=== PATIENT | female | born 2000 | race Caucasian/White ===

== ENCOUNTER 2021-11-24 11:10 | Emergency (ER) | payer OTHER ==
[2021-11-24 12:14] LABS: Bilirubin Neg (Negative); Blood, Urine Negative (Negative); Clarity Slightly Cloudy (Clear); Glucose, Urine (Dipstick) Normal (Negative); Ketone, Urine Negative (Negative); Leukocyte 500 (Negative); Nitrite Negative (Negative); Protein, Urine (Dipstick) Negative (Neg-Trace); Specific Gravity, Urine 1.015 (1.002-1.036); Urobilinogen Normal mg/dL (Less than 2)
[2021-11-24 12:18] LABS: #Basophils 0.1 10x3/uL (0.0-0.2); #Eosinphils 0.1 10x3/uL (0.0-0.5); #Monocytes 1.1 10x3/uL (0.0-1.1); #Neutrophils 11.4 10x3/uL (1.5-8.4); %Basophils 0.4 % (0.0-2.0); %Eosinophils 0.8 % (0.0-6.0); %Lymphocytes 13.5 % (18.0-47.0); %Monocytes 7.4 % (0.0-10.0); %Neutrophils 77.1 % (40.0-75.0); Hemoglobin 11.2 g/dL (12.0-15.5); Mean Corpuscular HGB CONC 33.4 g/dL (32.0-36.0); Mean Corpuscular Hemoglobin 28.7 pg (27.0-33.0); Mean Corpuscular Volume 85.9 fl (81.6-98.3); Mean Platelet Volume 10.1 fl (7.4-10.4); Platelet Count 335 10x3/uL (150-450); RBC Distribution Width 12.8 % (11.5-14.5); White Blood Cell (WBC) Count 14.7 10x3/uL (3.5-10.5)
[2021-11-24 12:27] LABS: ALT (SGPT) 39 U/L (8-55); AST (SGOT) 27 U/L (5-34); Albumin 3.7 g/dL (3.5-5.0); Alkaline Phosphatase 68 U/L (40-100); Anion Gap 11 mmol/L (10-20); BUN (Urea Nitrogen) 10 mg/dL (7.0-18.7); Bilirubin, Total 0.4 mg/dL (0.2-1.2); Calc. Creatinine Clearance 0 mL/min (70-130); Calcium 9.3 mg/dL (7.8-10.44); Carbon Dioxide 23 mmol/L (22-29); Chloride 106 mmol/L (98-107); Estimated GFR 128; Globulin 3.1 g/dL (2.4-3.5); Glucose 70 mg/dL (70-105); Potassium 3.9 mmol/L (3.5-5.1); Protein, Total 6.8 g/dL (6.0-8.3); Sodium 136 mmol/L (136-145)
[2021-11-24 12:30] LABS: RBC/HPF 0-3 HPF (0-3)
[2021-11-24 12:31] LABS: Bacteria/HPF 3+ HPF (None Seen)
== END 2021-11-24 14:10 | disposition home or self-care (01) ==
LOC: CSHERS 11:10
DX: O23.42 Unspecified infection of urinary tract in pregnancy, second trimester (principal); N39.0 Urinary tract infection, site not specified; Z3A.19 19 weeks gestation of pregnancy
CPT/HCPCS: 36415; 80053; 81003; 81015; 85025; 86900; 86901; 87480; 87510; 87660; 99284

== ENCOUNTER 2021-12-30 08:51 | Emergency (ER) | payer OTHER ==
[2021-12-30] MEDS ORDERED: Ondansetron PF 4 MG/2 ML Vial ONE (10:31)
[2021-12-30 10:38] LABS: Hemoglobin 10.5 g/dL (12.0-15.5); Mean Corpuscular HGB CONC 32.7 g/dL (32.0-36.0); Mean Corpuscular Hemoglobin 28.4 pg (27.0-33.0); Mean Corpuscular Volume 86.8 fl (81.6-98.3); Platelet Count 349 10x3/uL (150-450); RBC Distribution Width 12.2 % (11.5-14.5); White Blood Cell (WBC) Count 21.8 10x3/uL (3.5-10.5)
[2021-12-30 10:39] LABS: MDiff Complete? YES
[2021-12-30 10:51] LABS: ALT (SGPT) 16 U/L (8-55); AST (SGOT) 20 U/L (5-34); Albumin 3.8 g/dL (3.5-5.0); Alkaline Phosphatase 89 U/L (40-110); Anion Gap 13 mmol/L (10-20); BUN (Urea Nitrogen) 7 mg/dL (7.0-18.7); Bilirubin, Total 0.4 mg/dL (0.2-1.2); Calc. Creatinine Clearance 0 mL/min (70-130); Carbon Dioxide 21 mmol/L (22-29); Chloride 106 mmol/L (98-107); Estimated GFR 129; Globulin 3.6 g/dL (2.4-3.5); Glucose 78 mg/dL (70-105); Potassium 3.7 mmol/L (3.5-5.1); Protein, Total 7.4 g/dL (6.0-8.3); Sodium 136 mmol/L (136-145)
[2021-12-30 10:59] LABS: Band 5 % (5-11); Eosinophils 1 % (0-10); Lymphocytes 8 % (21-51); Metamyelocyte 1 % (0-0); Monocytes 1 % (0-10); Myelocyte 1 % (0-0); Neutrophil 83 % (42-75)
[2021-12-30 11:01] LABS: Platelet Morphology Comment Appears Adequate; RBC Morphology Normal
[2021-12-30 11:50] LABS: Bilirubin Neg (Negative); Blood, Urine Negative (Negative); Glucose, Urine (Dipstick) Normal (Negative); Ketone, Urine 5 mg/dL (Negative); Leukocyte 100 (Negative); Nitrite Negative (Negative); Protein, Urine (Dipstick) 30 mg/dl (Neg-Trace); Specific Gravity, Urine 1.015 (1.005-1.030); Urobilinogen Normal mg/dL (Less than 2); pH, Urine 6.5 (5.0-9.0)
[2021-12-30 11:52] LABS: Clarity Slightly Cloudy (Clear)
[2021-12-30 12:04] LABS: Bacteria/HPF 2+ HPF (None Seen); RBC/HPF 0-3 HPF (0-3)
[2021-12-30] MEDS ORDERED: cefTRIAXone\\ROCEPHIN 2 GM VIAL ONE (12:54)
== END 2021-12-30 13:21 | disposition home or self-care (01) ==
LOC: CSHERS 08:51
DX: O23.12 Infections of bladder in pregnancy, second trimester (principal); N30.00 Acute cystitis without hematuria; Z3A.25 25 weeks gestation of pregnancy
CPT/HCPCS: 80053; 81003; 81015; 85025; 87804; 96361; 96365; 96375; J0696; J2405

== ENCOUNTER 2022-03-08 21:38 | Day surgery (SDC) | payer OTHER ==
[2022-03-08 22:46] VITALS: BMI 28.3
[2022-03-08] MEDS ORDERED: hydrALAZINE 20 MG/ML VIAL SLOW IVP PRN (22:55)
[2022-03-08] MEDS ORDERED: Butorphanol Tartrate 1 MG/ML VIAL SLOW IVP PRN (22:56)
[2022-03-08] MEDS ORDERED: Lactated Ringer's 1,000 ML IV SCH (23:00)
[2022-03-08 23:37] LABS: Hemoglobin 10.2 g/dL (12.0-15.5); Mean Corpuscular Hemoglobin 24.8 pg (27.0-33.0); Mean Corpuscular Volume 77.4 fl (81.6-98.3); Mean Platelet Volume 11.1 fl (7.4-10.4); Platelet Count 408 10x3/uL (150-450); RBC Distribution Width 14.3 % (11.5-14.5); Red Blood Cell (RBC) Count 4.12 10x6/uL (3.90-5.03); White Blood Cell (WBC) Count 17.4 10x3/uL (3.5-10.5)
[2022-03-09 00:18] LABS: HBSAg Index 0.17 S/CO (0-0.99); Hep B Surf Ag Non-Reactive S/CO (NonReactive); Syphilis Antibody Nonreactive (Nonreactive); Syphilis Antibody Index 0.05 S/CO (<1.00 Non-Reactive)
== END 2022-03-09 01:24 | disposition home or self-care (01) ==
LOC: CSHLD/OP 21:38
PROVIDERS: ATTEND Obstetrics & Gynecology
DX: O47.03 False labor before 37 completed weeks of gestation, third trimester (principal); Z3A.35 35 weeks gestation of pregnancy; Z79.899 Other long term (current) drug therapy; Z90.49 Acquired absence of other specified parts of digestive tract
CPT/HCPCS: 36415; 85027; 86780; 86850; 86900; 86901; 87340; 96360; 96361; 99284

== ENCOUNTER 2022-03-15 10:42 | Day surgery (SDC) | payer OTHER ==
[2022-03-15 11:24] VITALS: BMI 28.3
[2022-03-15 11:37] LABS: Fetal Membranes Rupture No Membranes Rupture (No Rupture)
[2022-03-15] MEDS ORDERED: hydrALAZINE 20 MG/ML VIAL SLOW IVP PRN (12:02)
== END 2022-03-15 13:50 | disposition home health service (06) ==
LOC: CSHLD/OP 10:42
PROVIDERS: ATTEND Obstetrics & Gynecology
DX: Z03.71 Encounter for suspected problem with amniotic cavity and membrane ruled out (principal); Z68.36 Body mass index [BMI] 36.0-36.9, adult
CPT/HCPCS: 76819; 84112; 99284

== ENCOUNTER 2022-03-26 18:51 | Day surgery (SDC) | payer OTHER ==
[2022-03-26 19:19] VITALS: BMI 28.3
[2022-03-26] MEDS ORDERED: hydrALAZINE 20 MG/ML VIAL SLOW IVP PRN (20:28)
== END 2022-03-26 21:35 | disposition home or self-care (01) ==
LOC: CSHLD/OP 18:51
PROVIDERS: ATTEND Obstetrics & Gynecology
DX: O47.1 False labor at or after 37 completed weeks of gestation (principal); Z3A.38 38 weeks gestation of pregnancy; Z79.899 Other long term (current) drug therapy
CPT/HCPCS: 99282

== ENCOUNTER 2022-03-28 11:49 | Inpatient (IN) | payer OTHER ==
[2022-03-28 12:51] VITALS: BMI 28.3
[2022-03-28 15:49] LABS: Hemoglobin 10.7 g/dL (12.0-15.5); Mean Corpuscular HGB CONC 30.5 g/dL (32.0-36.0); Mean Corpuscular Hemoglobin 23.1 pg (27.0-33.0); Mean Corpuscular Volume 75.6 fl (81.6-98.3); Mean Platelet Volume 11.1 fl (7.4-10.4); Platelet Count 400 10x3/uL (150-450); Red Blood Cell (RBC) Count 4.64 10x6/uL (3.90-5.03); White Blood Cell (WBC) Count 19.2 10x3/uL (3.5-10.5)
[2022-03-28 16:18] LABS: Syphilis Antibody Nonreactive (Nonreactive); Syphilis Antibody Index 0.05 S/CO (<1.00 Non-Reactive)
[2022-03-28 16:25] LABS: SARS-CoV-2 NAA Rapid Test Not Detected (NotDetected)
[2022-03-28 17:04] LABS: HBSAg Index 0.16 S/CO (0-0.99); Hep B Surf Ag Non-Reactive S/CO (NonReactive)
[2022-03-28] MEDS ORDERED: Butorphanol Tartrate 1 MG/ML VIAL SLOW IVP PRN (20:30)
[2022-03-28] MEDS ORDERED: Misoprostol 200 MCG TAB PR PRN (20:30)
[2022-03-28] MEDS ORDERED: NS w/ Oxytocin 30 units 500 ML IV SCH ×2 (20:30)
[2022-03-28] MEDS ORDERED: Promethazine HCl 25 MG/ML VIAL IM PRN ×2 (20:30→22:43)
[2022-03-28] MEDS ORDERED: hydrALAZINE 20 MG/ML VIAL SLOW IVP PRN (20:30)
[2022-03-28] MEDS ORDERED: HYDROcodone/Acetaminophen 5/325 mg Tablet PO PRN (20:30)
[2022-03-28] MEDS ORDERED: Carboprost 250 MCG/ML AMP IM PRN (20:30)
[2022-03-28] MEDS ORDERED: Ibuprofen 800 MG TAB PO PRN (20:30)
[2022-03-28] MEDS ORDERED: Methylergonovine 0.2 MG/ML VIAL IM PRN (20:30)
[2022-03-28] MEDS ORDERED: Lidocaine 1% (PF) 30 ML VIAL SC PRN (20:30)
[2022-03-28] MEDS ORDERED: Ondansetron PF 4 MG/2 ML Vial IVP PRN ×2 (20:30→22:43)
[2022-03-28] MEDS ORDERED: Acetaminophen 500 MG TAB PO PRN (20:30)
[2022-03-28] MEDS ORDERED: Diphenoxylate HCl/Atropine Tablet PO PRN ×2 (20:30)
[2022-03-28] MEDS ORDERED: Fentanyl 2 mcg/Bup 0.1% Cadd 100 ML ONE (21:36)
[2022-03-28] MEDS ORDERED: Moisturizing Cream (Eucerin) 113 GM JAR TOP PRN (22:43)
[2022-03-28] MEDS ORDERED: Naloxone HCl 0.4 mg/ml Vial IVP PRN ×2 (22:43)
[2022-03-28] MEDS ORDERED: diphenhydrAMINE 50 MG/ML VIAL IVP PRN (22:43)
[2022-03-28] MEDS ORDERED: Acetaminophen 325 MG TAB PO PRN (22:43)
[2022-03-28] MEDS ORDERED: Lactated Ringer's 500 ML IV PRN (22:43)
[2022-03-28] MEDS ORDERED: ePHEDrine Sulfate 50 MG/10 ML VIAL SLOW IVP PRN (22:43)
[2022-03-28] MEDS ORDERED: Communication Order-Pharmacy FS SCH (22:45)
[2022-03-28] MEDS ORDERED: Fentanyl 2 mcg/Bupivacaine 0.1% Cassette 100 ML EPIDURAL SCH (22:45)
[2022-03-29 00:08] LABS: HIV (1/2) Antibody/Antigen Non-Reactive (NonReactive); HIV 1/2 INDEX 0.07 S/CO (<1.00)
[2022-03-29] MEDS ORDERED: CEFAZOLIN 2 GM in Sodium Chloride 0.9% 100 ML IVPB SCH (06:45)
[2022-03-29] MEDS ORDERED: Fentanyl 100 MCG/2 ML VIAL ONE (09:56)
[2022-03-29] MEDS ORDERED: Fentanyl 2 mcg/Bup 0.1% Cadd 100 ML ONE (11:57)
[2022-03-29] MEDS ORDERED: Bupivacaine HCl 0.5%/Epinephrine 1:200,000/PF 30 ml Vial ONE (14:00)
[2022-03-29] MEDS ORDERED: Lidocaine 2% PF 5 ML VIAL ONE (14:00)
[2022-03-29] MEDS: Lactated Ringer's 1,000 ML IV SCH ×2 (18:19→18:22)
[2022-03-29] MEDS ORDERED: Milk Of Magnesia 30 ML UDCUP PO PRN (20:00)
[2022-03-29] MEDS ORDERED: Benzocaine-Menthol 82.5 ML CAN TOP PRN (20:00)
[2022-03-29] MEDS ORDERED: Measles/Mumps/Rubella 10 MCG/0.5 ML VIAL SC ONE (20:00)
[2022-03-29] MEDS ORDERED: Boostrix 0.5 ML (Tdap) VIAL (>/=7 yrs of age) IM ONE (20:00)
[2022-03-29] MEDS ORDERED: NS w/ Oxytocin 30 units 500 ML IV SCH (20:00)
[2022-03-29] MEDS ORDERED: diphenhydrAMINE 25 MG CAP PO PRN (20:00)
[2022-03-29] MEDS ORDERED: Misoprostol 200 MCG TAB VAG PRN (20:00)
[2022-03-29] MEDS ORDERED: HYDROcodone/Acetaminophen 5/325 mg Tablet PO PRN ×2 (20:00)
[2022-03-29] MEDS ORDERED: Preparation H Ointment 28 GM TUBE PR PRN (20:00)
[2022-03-29] MEDS ORDERED: Lanolin Ointment 7 GM TUBE TOP PRN (20:00)
[2022-03-29] MEDS ORDERED: Promethazine HCl 25 MG/ML VIAL IM PRN (20:00)
[2022-03-29] MEDS ORDERED: Bisacodyl 10 MG SUPP PR PRN (20:00)
[2022-03-29] MEDS ORDERED: Ondansetron PF 4 MG/2 ML Vial IVP PRN (20:00)
[2022-03-29] MEDS ORDERED: Zolpidem Tartrate 5 MG TAB PO PRN (20:00)
[2022-03-29] MEDS ORDERED: hydrALAZINE 20 MG/ML VIAL SLOW IVP PRN (20:00)
[2022-03-29] MEDS ORDERED: Varicella virus, LIVE 0.5 ML VIAL SC ONE (20:00)
[2022-03-29] MEDS ORDERED: Methylergonovine 0.2 MG/ML VIAL IM PRN (20:00)
[2022-03-29] MEDS: Docusate 100 MG CAP PO SCH (21:07)
[2022-03-29] MEDS: Ibuprofen 800 MG TAB PO SCH (21:07)
[2022-03-30 04:53] LABS: Hemoglobin 8.1 g/dL (12.0-15.5); Mean Corpuscular HGB CONC 31.2 g/dL (32.0-36.0); Mean Corpuscular Hemoglobin 24.1 pg (27.0-33.0); Mean Corpuscular Volume 77.4 fl (81.6-98.3); Mean Platelet Volume 11.4 fl (7.4-10.4); Platelet Count 299 10x3/uL (150-450); RBC Distribution Width 15.3 % (11.5-14.5); Red Blood Cell (RBC) Count 3.36 10x6/uL (3.90-5.03); White Blood Cell (WBC) Count 21.2 10x3/uL (3.5-10.5)
[2022-03-30] MEDS: Ibuprofen 800 MG TAB PO SCH ×3 (05:16→21:10)
[2022-03-30] MEDS: Ferrous Sulfate 325 MG TAB PO SCH ×2 (08:23→17:02)
[2022-03-30] MEDS: Docusate 100 MG CAP PO SCH ×2 (08:24→21:10)
[2022-03-30] MEDS: Prenatal Vitamin 1 TAB PO SCH (08:24)
[2022-03-30 23:11] VITALS: TEMP 98.3
[2022-03-31] MEDS: Ibuprofen 800 MG TAB PO SCH (05:39)
[2022-03-31 07:53] VITALS: BP 114/60
[2022-03-31] MEDS: Ferrous Sulfate 325 MG TAB PO SCH (08:50)
[2022-03-31] MEDS: Prenatal Vitamin 1 TAB PO SCH (08:50)
[2022-03-31] MEDS: Docusate 100 MG CAP PO SCH (08:50)
== END 2022-03-31 12:05 | disposition home or self-care (01) | DRG 807 ==
LOC: CSHLD/OP 11:49 → CSHLD 21:21 → CSHPP 03-29 17:50
PROVIDERS: ADMIT Obstetrics & Gynecology; ATTEND Obstetrics & Gynecology
PROC: 10E0XZZ Delivery of Products of Conception, External Approach (ICD-10-PCS; principal; 2022-03-29)
DX: O60.14X0 Preterm labor third trimester with preterm delivery third trimester, not applicable or unspecified (principal); Z37.0 Single live birth; Z3A.36 36 weeks gestation of pregnancy; Z20.822 Contact with and (suspected) exposure to COVID-19
CPT/HCPCS: 51702; 85027; 86780; 86850; 86900; 86901; 87340; 87389; 99285; J2001; J2405; J3490